=== PATIENT | female | born 1995 | race American Indian/Alaskan Native ===

== ENCOUNTER 2020-09-03 08:00 | Outpatient (CLI) | payer OTHER | END 2020-09-03 08:30 | disposition home or self-care (01) | LOC: PPH VACUNA 08:00 | DX: Z23 Encounter for immunization (principal) ==

== ENCOUNTER 2020-10-14 08:00 | Outpatient (CLI) | payer OTHER | END 2020-10-14 08:30 | disposition home or self-care (01) | LOC: PPH VACUNA 08:00 | DX: Z23 Encounter for immunization (principal) ==

== ENCOUNTER 2021-10-26 10:35 | Outpatient (CLI) | payer OTHER | END 2021-10-26 10:50 | disposition home or self-care (01) | LOC: PPH VACUNA 10:35 | DX: Z23 Encounter for immunization (principal) ==